=== PATIENT | male | born 1960 | race Caucasian/White ===

== ENCOUNTER 2024-11-19 17:02 | Emergency (ER) | payer MEDICARE, MEDICAID, SELFPAY ==
[2024-11-19 17:02] VITALS: BP 126/90; PULSE 90; RESP 16; TEMP 36.7; O2SAT 98
[2024-11-19 17:14] VITALS: BMI 20.8
--- NOTE | 2024-11-19 17:37 | EX.ED.DYSGE1 ---
HPI History of Present Illness Chief Complaint: Med Refill Informant: patient and family Narrative Narrative: 64-year-old male history of spine surgery recently. Osteomyelitis. Currently not on antibiotics. He was in the extended-care facility in [place] for 18 months. He is currently out. He came up to this area to visit family. He is heading back home to [place]. He had issue with his transportation home and his return home was delayed. He is currently out of his medications. He just wants them refilled for a few days when he is plan on leaving tomorrow. Prior similar symptoms: No Recent Illness/Hospital[facility]: [facility] Medical History COPD (chronic obstructive pulmonary disease) Home Medications ?Medication ?Instructions ?Recorded ?Last Taken ?Type albuterol sulfate 90 mcg/actuation 1 - 2 puff inhalation Q4H PRN PRN 11/19/24 Unknown Rx aerosol inhaler (Ventolin HFA) Wheezing 7 days #1 device baclofen 10 mg tablet 10 mg PO BID 11/19/24 Unknown History baclofen 10 mg tablet 10 mg PO BID #10 tabs 11/19/24 Unknown Rx gabapentin 300 mg capsule 900 mg (3 x 300 mg) PO TID 5 days 11/19/24 Unknown Rx #45 caps gabapentin 300 mg capsule 900 mg PO TID 11/19/24 Unknown History (Neurontin) oxycodone-acetaminophen 10 mg-325 1 tab PO Q6H 3 days #12 tabs 11/19/24 Unknown Rx mg tablet (Percocet) oxycodone-acetaminophen 10 mg-325 1 tab PO Q6H PRN pain 11/19/24 Unknown History mg tablet (Percocet) Allergy/AdvReac Type Severity Reaction Status Date / Time Sulfa (Sulfonamide Allergy Unknown Verified 11/19/24 17:03 Antibiotics) Surgical History History of back surgery Social History Smoking Status: Current every day smoker tobacco type: cigarettes ROS ROS ED ROS Narrative Denies recent illness. Constitutional Constitutional ED: Denies chills or fever(s) Eyes Eyes: Denies blurry vision ENT ENT ED: Denies ear pain Cardiovascular Cardiovascular: Denies chest pain Respiratory/Chest Respiratory/Chest: Denies cough or dyspnea Gastrointestinal Gastrointestinal: Denies abdominal pain Genitourinary Genitourinary ED: Denies dysuria Musculoskeletal Musculoskeletal: Denies arthralgias or back pain Integumentary Denies abscess Neurologic Neurologic: Denies headache(s) Psychiatric Psychiatric: Denies anxiety or depression Hematologic/Lymphatic Hematologic/Lymphatic: Reports none Allergic/Immunologic Allergic/Immunologic ED: Denies mouth swelling, tongue swelling or urticaria EXAM Physical Exam Narrative Exam Narrative: Well-appearing 64-year-old male. Vital signs stable afebrile. Pulse ox 90% on room air no signs hypoxia. H EENT exam pupils round react light. Moist pink members. Neck nontender JVD. No lymphadenopathy. Lungs clear to auscultation bilaterally. Heart regular rate and rhythm rate about 90 no murmur. Chest wall ribs nontender. Abdomen soft nontender. Back status post recent lumbar spine surgery. 6+ inch incision. Dry and clean. No discharge or redness. Sutures still in place. Moving all 4 extremities. Nontender no edema. No deformity. Neurologically is awake alert. Answer questions following commands. No focal motor deficits. Const Vital Signs: 11/19/24 17:02 11/19/24 17:18 Temperature 98.1 F Temperature Source Oral Pulse Rate 90 Respiratory Rate 16 Respiratory Pattern Normal Blood Pressure 126/90 H Blood Pressure Mean 102 Pulse Ox 98 Oxygen Delivery Method Room Air Positive well nourished and well developed; Negative for obese, cachectic, contractures or unkempt General Appearance ED: well developed and NAD; Negative for unkempt, cachectic, contractures, cyanotic, diaphoretic or pallor Nutritional Appearance: Negative for cachectic or obese HEENT Reports moist mucous membranes Negative for trauma or tenderness Eyes PERRL and EOMs intact bilaterally Neck no lymphadenopathy, supple and no JVD Chest Wall inspection of chest normal and palpation of chest normal Resp normal respiratory effort and clear to auscultation bilaterally Cardio regular rate, regular rhythm, S1 normal heart sound, S2 normal heart sound and no murmurs GI normal to inspection, nondistended, normoactive bowel sounds, non-tender, non-distended and no masses Palpation: soft; Negative for tender, guarding or rebound tenderness present Back/Spine no CVA tenderness Back/Spine Narrative: Recent lumbar surgery. Well-healing back surgery. Sutures in place. No redness or discharge. Extremity normal to inspection General Extremety ED: Negative for edema or tenderness General Extremity: Negative for edema Neuro oriented x3 and CN's II-XII intact bilaterally Sensorium / Orientation: alert Motor Exam: strength 5/5 throughout Psych mental status grossly normal Appearance: Negative for unkempt Attitude: No agitated Mood & Affect: Negative for depressed, anxious or tearful Skin no rashes or lesions noted and no wounds General Skin Exam: Negative for jaundice or pallor Rashes: No rashes noted Trauma: Negative for abrasion Wounds: Negative for wounds noted MDM MDM MDM Narrative Medical decision making narrative: 64-year-old male from [place] his return home was delayed so he is out of medications he needs a med refill just for several days. I running for those. He will be discharged home. There is no acute medical complaint otherwise. History & Record Review Discussion w/independent historian: Family Additional record(s) reviewed:: Prior inpatient record, Prior outpatient record, Prior ED visit and Prior labs Discharge Plan Triage Chief Complaint: Med Refill ED Provider: Sanchez Smith Dx/Rx/DC Orders Clinical Impression: Medication refill, Chronic back pain, History of lumbar surgery, Osteomyelitis Prescriptions: New baclofen 10 mg tablet 10 mg PO BID Qty: 10 0RF albuterol sulfate [Ventolin HFA] 90 mcg/actuation HFA aerosol inhaler 1 - 2 puff inhalation Q4H PRN MDD 6 times a day. PRN (Reason: Wheezing) 7 Days Qty: 1 0RF oxycodone-acetaminophen [Percocet] 10-325 mg tablet 1 tab PO Q6H 3 Days Qty: 12 0RF gabapentin 300 mg capsule 900 mg PO TID 5 Days Qty: 45 0RF No Action gabapentin [Neurontin] 300 mg capsule 900 mg PO TID baclofen 10 mg tablet 10 mg PO BID oxycodone-acetaminophen [Percocet] 10-325 mg tablet 1 tab PO Q6H PRN (Reason: pain) Primary Care Provider: Care Physician,No Primary Referrals: Care Physician,No Primary [Primary Care Provider] - Activity Restrictions/Additional Instructions: Follow-up with your doctors in [place]. Medications as prescribed. Do not drive or operate any vehicles while on the Percocet. Print Language: French Disposition Disposition: Home, Self Care
== END 2024-11-19 17:48 | disposition home or self-care (01) ==
LOC: ED 17:39
PROVIDERS: Emergency Provider Emergency Medicine; Referring Provider Emergency Medicine; Visit Provider Emergency Medicine
DX: Z76.0 Encounter for issue of repeat prescription (principal); M86.9 Osteomyelitis, unspecified; J44.9 Chronic obstructive pulmonary disease, unspecified; G89.29 Other chronic pain; M54.9 Dorsalgia, unspecified; Z98.890 Other specified postprocedural states; F17.210 Nicotine dependence, cigarettes, uncomplicated
CPT/HCPCS: 99282